=== PATIENT | male | born 1980 | race Caucasian/White ===

== ENCOUNTER 2020-04-20 12:25 | Outpatient (CLI) | payer BC, OTHER ==
--- NOTE | 2020-04-20 14:20 | MRI ---
Exam: Brain MRI without contrast HISTORY: Headache. COMPARISON: None FINDINGS: Calvarial marrow signal intensity: Appropriate T1 signal Gradient echo sequence: No hemorrhage Brain parenchyma: No mass, mass effect or midline shift. Brain volume, age-appropriate. Cortical steiner-white matter differentiation: Preserved Restricted diffusion: Central arterial flow voids are maintained. Absent restricted diffusion White matter signal intensities: T2, FLAIR white matter hyperintensities due to chronic small vessel ischemic changes Sinuses: Minimal mucosal thickening of the ethmoid air cells. Left maxillary sinus mucus retention cy st IMPRESSION: No acute abnormality. Unremarkable noncontrast brain MRI.
--- NOTE | 2020-04-20 15:26 | MRI ---
MRI CERVICAL SPINE WITHOUT CONTRAST: INDICATION: A 39-year-old male with arm and neck pain without history of injury. COMPARISON: Prior cervical spine radiograph dated 10/28/2015. FINDINGS: There is an ACDF at C6-7 that is similar to the comparison radiograph. There is some mild kyphotic a ngulation at C5-6. Bone marrow signal intensity appears within normal limits. Visualized posterior fossa is normal ap pearing. Craniocervical junction appears within normal limits. At C2-C3, there is mild facet joint degenerative change, but no appreciable central canal or neural f oraminal narrowing. At C3-4, there is no appreciable central canal or neural foraminal narrowing. There is mild facet ash int degenerative change. At C4-5, there is no appreciable central canal or neural foraminal narrowing. At C5-6, there is a broad-based disk bulge causing moderate central canal narrowing and mild ventral effacement of the spinal cord without cord signal abnormality. The broad-based bulge in addition to uncovertebral hypertrophy induces moderate left and moderate to severe right neural foraminal narrowi ng. At C6-7, there is a residual osteophyte complex inducing mild left neural foraminal narrowing. At C7-T1, there is no appreciable central canal or neural foraminal narrowing. IMPRESSION: 1. Adjacent segment degenerative change at C5-6 inducing moderate central canal narrowing with mild ventral effacement of the spinal cord. There is moderate to severe right and moderate left neural fo raminal narrowing. 2. Mild left neural foraminal narrowing at C6-7. POS: MARISOL
--- NOTE | 2020-04-20 15:43 | RAD ---
CERVICAL SPINE 3 VIEWS: HISTORY: Neck pain. COMPARISON: 10/28/2015 study. FINDINGS/IMPRESSION: Vertebral bodies maintain normal height. Some minimal disk narrowing at C5-6. Postop fusion changes at the C6-7 level. The overall appearance is fairly similar to the previous exam other than some sl ight increase to the disk narrowing at C5-6. There are some postop changes of the spine and mild art hritic change. POS: OFF
== END 2020-04-20 12:26 | disposition home or self-care (01) ==
LOC: TBSIIMAG 12:25
PROVIDERS: ATTEND Neurological Surgery
DX: M54.2 Cervicalgia (principal); G89.29 Other chronic pain; R51.9 Headache, unspecified; M48.02 Spinal stenosis, cervical region; M47.812 Spondylosis without myelopathy or radiculopathy, cervical region; Z98.1 Arthrodesis status
CPT/HCPCS: 70551; 72040; 72141

== ENCOUNTER 2020-05-18 06:48 | Outpatient (CLI) | payer BC, OTHER ==
[2020-05-18 15:14] LABS: Hemoglobin 16.6 g/dL (14.0-18.0); Mean Corpuscular HGB CONC 34.4 G/DL (32.0-36.0); Mean Corpuscular Hemoglobin 31.3 PG (27.0-33.0); Mean Corpuscular Volume 91.1 fl (80.0-100.0); Mean Platelet Volume 10.7 fl (7.4-10.4); Platelet Count 248 10x3/uL (130-400); RBC Distribution Width 11.8 % (11.5-14.5); White Blood Cell (WBC) Count 6.1 10x3/uL (4.5-11.0)
[2020-05-18 15:41] LABS: Anion Gap 13 mmol/L (10-20); BUN (Urea Nitrogen) 9 mg/dL (8.9-20.6); Calc. Creatinine Clearance 0 mL/min (70-130); Calcium 8.7 mg/dL (7.8-10.44); Carbon Dioxide 28 mmol/L (22-29); Chloride 103 mmol/L (98-107); Glucose 103 mg/dL (70-105); Potassium 4.6 mmol/L (3.5-5.1); Sodium 139 mmol/L (136-145)
[2020-05-19 02:11] LABS: SARS-CoV-2 MS2 Positive; SARS-CoV-2 N Gene Negative; SARS-CoV-2 S Gene Negative; SARS-CoV-2 by NAA Not Detected (NotDetected); SARS-CoV-2 orf1ab Negative
== END 2020-05-18 06:49 | disposition home or self-care (01) ==
LOC: LABBT 06:48
PROVIDERS: ATTEND Neurological Surgery
DX: Z01.818 Encounter for other preprocedural examination (principal); M54.12 Radiculopathy, cervical region; Z20.828 Contact with and (suspected) exposure to other viral communicable diseases
CPT/HCPCS: 80048; 85027; 87635; 93005; 93010; U0003

== ENCOUNTER 2020-05-18 14:45 | Inpatient (IN) | payer BC, OTHER ==
[2020-05-21] MEDS ORDERED: Midazolam HCl 2 mg/2 ml Vial ONE (07:19)
[2020-05-21] MEDS ORDERED: Fentanyl 100 MCG/2 ML VIAL ONE ×3 (07:20→09:11)
[2020-05-21] MEDS ORDERED: SUGAMMADEX SODIUM 200 MG/2 ML VIAL ONE (08:31)
--- NOTE | 2020-05-21 08:37 | OP ---
DATE OF PROCEDURE: 05/21/2020 ELECTRIC INSTALLER: Orquidea Godfrey PA-C PROCEDURES PERFORMED: Removal of hardware, C6-C7; expiration of spinal fusion, C6-C7; anterior cervical discectomy and fusion, C5-C6; interbody arthrodesis, intervertebral biomechanical device, local morselized autograft, demineralized bone matrix, anterior titanium instrumentation, C5-C6. DESCRIPTION OF PROCEDURE: The patient was brought to the operating room and intubated. He was positioned supine with head in modest extension on a gel-filled donut. An incision was made in the right precervical area and dissected medial to the sternocleidomastoid muscle. We identified the anterior cervical spine and the level was confirmed by x-ray. We placed distraction across C5-C6, removed the intervertebral disk, completely decompressing the neural elements. We removed the cervical plate at C6-C7 and explored the spinal fusion and it appeared to be solid. We next decorticated the bony endplates at C5-C6 for the purpose of arthrodesis and appropriately-sized intervertebral biomechanical PEEK device was brought into the field, filled with demineralized bone matrix and local morselized autograft, and tapped in place securely at C5-C6. Next, an anterior plate was brought into the field and secured to C5 and C6 using two 14-mm screws at each level. The plate was separate and distinct and not integral to the intervertebral device. The wound was then extensively irrigated and MAC hemostasis was secured. The wound was closed in anatomic layers over drain. Job ID: [id number]
[2020-05-21] MEDS ORDERED: Promethazine HCl 25 MG/ML VIAL SLOW IVP PRN (08:49)
[2020-05-21] MEDS ORDERED: Promethazine HCl 25 MG/ML VIAL IM PRN (08:49)
[2020-05-21] MEDS ORDERED: Ondansetron HCl/PF 4 MG/2 ML Vial IVP PRN (08:49)
[2020-05-21] MEDS ORDERED: HYDROmorphone 2 MG/ML VIAL ONE (09:39)
[2020-05-21] MEDS ORDERED: HYDROmorphone 2 MG/ML VIAL SLOW IVP PRN (09:45)
[2020-05-21] MEDS ORDERED: tiZANidine HCl 4 MG TAB ONE (10:56)
[2020-05-21] MEDS ORDERED: Tamsulosin HCl 0.4 MG CAP ONE (10:56)
[2020-05-21] MEDS ORDERED: Morphine 4 MG/ML VIAL ONE ×5 (11:23→17:22)
[2020-05-21] MEDS ORDERED: Ondansetron PF 4 MG/2 ML Vial IVP PRN (11:43)
[2020-05-21] MEDS ORDERED: Morphine 4 MG/ML VIAL SLOW IVP PRN (11:45)
[2020-05-21] MEDS ORDERED: diphenhydrAMINE 50 MG/ML VIAL IVP PRN (11:45)
[2020-05-21] MEDS ORDERED: PROPOFOL 200 MG/20 ML VIAL ONE (11:45)
[2020-05-21] MEDS ORDERED: Ondansetron PF 4 MG/2 ML Vial ONE ×2 (11:45→18:05)
[2020-05-21] MEDS ORDERED: PHENYLEPHRINE-NS 100 MCG/ML 10 ML SYRINGE ONE (11:45)
[2020-05-21] MEDS ORDERED: Morphine 2 MG/ML VIAL SLOW IVP PRN (11:45)
[2020-05-21] MEDS ORDERED: Milk Of Magnesia 30 ML UDCUP PO PRN (11:45)
[2020-05-21] MEDS ORDERED: Acetaminophen/Codeine 30-300mg Tablet PO PRN (11:45)
[2020-05-21] MEDS ORDERED: Mag-Al 1200 mg/1200 mg/30 ML UDCUP PO PRN (11:45)
[2020-05-21] MEDS ORDERED: Dexamethasone 20 MG/5 ML VIAL ONE (11:45)
[2020-05-21] MEDS ORDERED: Rocuronium Bromide 10 MG/ML (10ML VIAL) ONE (11:45)
[2020-05-21] MEDS ORDERED: diphenhydrAMINE 25 MG CAP PO PRN (11:45)
[2020-05-21] MEDS ORDERED: traMADol HCl 50 MG TAB PO PRN ×2 (11:45)
[2020-05-21] MEDS: CEFAZOLIN 2 GM in Premix Bag 1 BAG IVPB SCH ×2 (15:01→20:48)
[2020-05-21] MEDS ORDERED: Acetaminophen/Codeine 30-300mg Tablet ONE (15:55)
[2020-05-21] MEDS: Acetaminophen/Codeine 30-300mg Tablet PO PRN ×2 (15:56→20:47)
[2020-05-21] MEDS ORDERED: Promethazine HCl 25 MG/ML VIAL ONE (18:28)
[2020-05-21] MEDS ORDERED: Albuterol Sulfate 2.5 mg/3 ml Neb NEB PRN (19:09)
[2020-05-21] MEDS: Sodium Chloride 0.9% 1,000 ML IV SCH (19:11)
[2020-05-21] MEDS: tiZANidine HCl 4 MG TAB PO PRN (20:47)
[2020-05-21] MEDS ORDERED: Prazosin HCl 1 MG CAP PO SCH (21:00)
[2020-05-22] MEDS: CEFAZOLIN 2 GM in Premix Bag 1 BAG IVPB SCH (05:35)
[2020-05-22] MEDS: Sodium Chloride 0.9% 1,000 ML IV SCH (05:35)
[2020-05-22] MEDS ORDERED: Tamsulosin HCl 0.4 MG CAP PO SCH (06:00)
[2020-05-22] MEDS: tiZANidine HCl 4 MG TAB PO PRN (08:15)
[2020-05-22] MEDS ORDERED: METHYLPHENIDATE HCL 36 MG PO SCH (09:00)
[2020-05-22] MEDS ORDERED: Fluticasone Propionate Nasal Spray 16 gm Bottle NASAL SCH (09:00)
[2020-05-22] MEDS ORDERED: Loratadine 10 MG TAB PO SCH (09:00)
--- NOTE | 2020-05-22 10:07 | DIS ---
DATE OF ADMISSION: 05/21/2020 DATE OF DISCHARGE: 05/22/2020 PROCEDURES: Removal of hardware at C6-C7, C5-C6 ACDF. DISCHARGE SUMMARY: The patient is a 40-year-old male recently evaluated in our office for progressive neck pain and found to have increased degenerative changes above his prior fusion at C5-C6. He underwent removal of hardware at C6-C7 and ACDF at C5-C6 on 05/21/2020. JUAN drain was placed intraoperatively. Following the surgery, he was transitioned to the Med/Surg floor, where his pain was well controlled with p.o. medications, he was tolerating a regular diet, and he was voiding appropriately. He was ambulating easily in the hallways. JUAN drain was minimal overnight and was removed on postoperative day #1. The patient was otherwise doing well and was dismissed to home, discussed home care precautions and his scripts for Tylenol No. 3 and Zanaflex were sent to his [facility] and had [employer] checked prior to discharge. We will follow up with the patient in 2 weeks. Job ID: [id number]
[2020-05-22 11:24] VITALS: TEMP 97.9
[2020-05-22 11:30] VITALS: BMI 34.4
[2020-05-22 13:42] VITALS: BP 112/61
[2020-05-22] MEDS ORDERED: FLU VACC QS2020-21(6MOS UP)/PF 60 MCG/0.5 ML SYRINGE IM ONE (21:00)
== END 2020-05-22 13:48 | disposition home or self-care (01) | DRG 473 ==
LOC: SURG A 05-21 05:47
PROVIDERS: ADMIT Neurological Surgery; ATTEND Neurological Surgery
PROC: 0RG20A0 Fusion of 2 or more Cervical Vertebral Joints with Interbody Fusion Device, Anterior Approach, Anterior Column, Open Approach (ICD-10-PCS; principal; 2020-05-21)
PROC: 0RT30ZZ Resection of Cervical Vertebral Disc, Open Approach (ICD-10-PCS; 2020-05-21)
PROC: 01N10ZZ Release Cervical Nerve, Open Approach (ICD-10-PCS; 2020-05-21)
PROC: 0RP104Z Removal of Internal Fixation Device from Cervical Vertebral Joint, Open Approach (ICD-10-PCS; 2020-05-21)
DX: M50.323 Other cervical disc degeneration at C6-C7 level (principal); F43.10 Post-traumatic stress disorder, unspecified; J45.909 Unspecified asthma, uncomplicated; K21.9 Gastro-esophageal reflux disease without esophagitis; F31.9 Bipolar disorder, unspecified; F90.9 Attention-deficit hyperactivity disorder, unspecified type; Z98.890 Other specified postprocedural states; Z88.1 Allergy status to other antibiotic agents; Z88.0 Allergy status to penicillin; Z88.8 Allergy status to other drugs, medicaments and biological substances; Z88.2 Allergy status to sulfonamides; Z90.49 Acquired absence of other specified parts of digestive tract
CPT/HCPCS: 76000; 80048; 85027; 87635; 93005; C1713; C1776; J0690; J1100; J1170; J2250; J2270; J2405; J2550; J2704; J3010; J3490; U0003

== ENCOUNTER 2020-06-09 08:51 | Outpatient (CLI) | payer BC, OTHER ==
--- NOTE | 2020-06-09 11:19 | RAD ---
CERVICAL SPINE 3 VIEWS: HISTORY: Cervical radiculopathy. COMPARISON: 04/20/2020. FINDINGS: New operative changes in the cervical spine since the prior study. Anterior plate and screws now tra nsfix the C5-6 level with interbody implant. The previously noted interbody implant at C6-7 remains. Mild anterior wedging of C6 is stable. Posterior alignment is preserved and unchanged. IMPRESSION: New postoperative changes since the prior exam of 04/20/2020. POS: AGW
== END 2020-06-09 08:52 | disposition home or self-care (01) ==
LOC: TBSIIMAG 08:51
PROVIDERS: ATTEND Neurological Surgery
DX: M54.12 Radiculopathy, cervical region (principal); Z98.890 Other specified postprocedural states
CPT/HCPCS: 72040

== ENCOUNTER 2020-08-04 12:36 | Outpatient (CLI) | payer OTHER ==
--- NOTE | 2020-08-04 14:11 | RAD ---
Exam: Cervical spine 4 views HISTORY: Follow-up. Cervical fusion. I comparison: 04/20/2020, 06/09/2020 FINDINGS: Stable anterior fusion plate with transvertebral body screw at C5-C6. Stable disc prosthesis at C5-C6 and C6-C7. Predental space is normal No prevertebral soft tissue swelling On the AP projection, there is no malalignment On the open-mouth projection, lateral masses of C1 and C2 articulate appropriately IMPRESSION: Stable fusion changes.
== END 2020-08-04 12:37 | disposition home or self-care (01) ==
LOC: TBSIIMAG 12:36
PROVIDERS: ATTEND Neurological Surgery
DX: M50.30 Other cervical disc degeneration, unspecified cervical region (principal); Z98.1 Arthrodesis status
CPT/HCPCS: 72040

== ENCOUNTER 2023-03-31 05:37 | Day surgery (SDC) | payer OTHER ==
[2023-03-30 14:41] VITALS: BMI 36.6
[2023-03-31] MEDS ORDERED: Vancomycin (BATCH) 2 GM in Premix 1 BAG IVPB SCH (06:15)
[2023-03-31] MEDS ORDERED: fentaNYL PF 100 MCG/2 ML SYRINGE ONE (06:36)
[2023-03-31] MEDS ORDERED: Phenylephrine 10 MG/ML VIAL ONE (06:36)
[2023-03-31 06:48] LABS: #Eosinphils 0.2 thou/uL (0.0-0.7); #Monocytes 0.6 thou/uL (0.11-0.59); #Neutrophils 2.7 thou/uL (1.40-6.50); %Basophils 0.2 % (0.0-1.0); %Eosinophils 3.3 % (0.0-10.0); %Lymphocytes 33.8 % (21.0-51.0); %Neutrophils 51.5 % (42.0-75.0); Hematocrit 44.5 % (42.0-52.0); Hemoglobin 15.5 g/dL (14.0-18.0); Mean Corpuscular HGB CONC 34.8 g/dL (32.0-36.0); Mean Corpuscular Hemoglobin 31.3 pg (27.0-31.0); Mean Corpuscular Volume 89.9 fl (78.0-98.0); Mean Platelet Volume 10.5 fL (7.4-10.4); Platelet Count 213 10x3/uL (130-400); RBC Distribution Width 11.9 % (11.5-14.5); Red Blood Cell (RBC) Count 4.95 mill/uL (4.70-6.10); White Blood Cell (WBC) Count 5.2 10x3/uL (4.8-10.8)
[2023-03-31] MEDS ORDERED: Bupivacaine PF 0.5% 30 ML VIAL ONE (07:09)
[2023-03-31] MEDS ORDERED: Midazolam HCl 2 mg/2 ml Vial ONE (07:09)
[2023-03-31 07:15] LABS: Anion Gap 12 mmol/L (10-20); BUN (Urea Nitrogen) 10 mg/dL (8.9-20.6); Calc. Creatinine Clearance 160 mL/min (70-130); Carbon Dioxide 27 mmol/L (22-29); Chloride 106 mmol/L (98-107); Estimated GFR 89; Glucose 130 mg/dL (70-105); Sodium 141 mmol/L (136-145)
[2023-03-31] MEDS ORDERED: Ondansetron PF 4 MG/2 ML Vial ONE (07:36)
[2023-03-31] MEDS ORDERED: Rocuronium Bromide 10 MG/ML (10ML VIAL) ONE (07:36)
[2023-03-31] MEDS ORDERED: PROPOFOL 200 MG/20 ML VIAL ONE (07:36)
[2023-03-31] MEDS ORDERED: Lidocaine 1% PF 5 ML VIAL ONE (07:36)
[2023-03-31] MEDS ORDERED: Dexamethasone 20 MG/5 ML VIAL ONE (07:36)
[2023-03-31] MEDS ORDERED: Ropivacaine 0.2% HCl/PF 20 ML ONE (07:51)
[2023-03-31] MEDS ORDERED: Ropivacaine 0.5% HCl/PF (150 MG/30 ML VIAL) ONE (07:51)
[2023-03-31] MEDS ORDERED: Bupivacaine 0.25% HCL 30 ML VIAL ONE (08:16)
[2023-03-31] MEDS ORDERED: EPINEPHrine 1 MG/ML AMP ONE (08:16)
[2023-03-31] MEDS ORDERED: Ropivacaine 0.2% 550 ML 550 ML NERVE BLCK SCH (08:30)
[2023-03-31] MEDS ORDERED: traMADol HCl 50 MG TAB PO PRN ×2 (08:30)
[2023-03-31] MEDS ORDERED: Promethazine HCl 25 MG/ML VIAL IM PRN (08:30)
[2023-03-31] MEDS ORDERED: Zolpidem Tartrate 5 MG TAB PO PRN (08:30)
[2023-03-31] MEDS ORDERED: HYDROcodone/Acetaminophen 10/325 mg Tablet PO PRN ×2 (08:30)
[2023-03-31] MEDS ORDERED: Ondansetron PF 4 MG/2 ML Vial IVP PRN (08:30)
[2023-03-31] MEDS ORDERED: Succinylcholine 200 MG/10 ml SYRINGE FS ONE (08:56)
[2023-03-31] MEDS ORDERED: SUGAMMADEX SODIUM 200 MG/2 ML VIAL ONE (08:56)
[2023-03-31] MEDS ORDERED: fentaNYL 50 mcg/mL 1 mL Vial ONE (09:18)
[2023-03-31] MEDS ORDERED: Meperidine HCl/PF 25 MG/ML VIAL ONE (09:46)
== END 2023-03-31 11:25 | disposition home or self-care (01) ==
LOC: SDC 05:37
PROVIDERS: ATTEND Orthopaedic Surgery
PROC: 0RBJ4ZZ Excision of Right Shoulder Joint, Percutaneous Endoscopic Approach (ICD-10-PCS; principal; 2023-03-31)
PROC: 0LB14ZZ Excision of Right Shoulder Tendon, Percutaneous Endoscopic Approach (ICD-10-PCS; principal; 2023-03-31)
DX: S46.011A Strain of muscle(s) and tendon(s) of the rotator cuff of right shoulder, initial encounter (principal); S43.431A Superior glenoid labrum lesion of right shoulder, initial encounter; M54.12 Radiculopathy, cervical region; J45.909 Unspecified asthma, uncomplicated; F90.9 Attention-deficit hyperactivity disorder, unspecified type; Z88.0 Allergy status to penicillin; Z88.2 Allergy status to sulfonamides; Z88.6 Allergy status to analgesic agent; Z88.8 Allergy status to other drugs, medicaments and biological substances; Z88.1 Allergy status to other antibiotic agents; Z90.49 Acquired absence of other specified parts of digestive tract; Z79.899 Other long term (current) drug therapy; X58.XXXA Exposure to other specified factors, initial encounter
CPT/HCPCS: 36415; 80048; 85025; A4306; J0171; J1100; J2175; J2250; J2370; J2405; J2704; J2795; J3010; J3370; S0020